=== PATIENT | male | born 1955 | race Caucasian/White ===

== ENCOUNTER 2019-10-12 10:28 | Emergency (ER) | payer OTHER, MEDICARE ==
[~2019-10-12] VITALS: Ht 182.9 cm; Wt 104.3 kg
[~2019-10-12 10:28] MED LIST: ASPI325 PO; ASPI81CH PO; ATEN25 PO; BUPR1 PO; BUPRENORPHINE HC8 MG SL; Crutch1 EACH MISC; FENT50TP TOP; FEXO180 PO; FLEC50 PO; HYDACE10B PO; HYDACE5 PO; IBUPROFEN PRN; Ibuprofen Ib200 MG PO; LANS30EC PO; LORA1 PO; NAPR550 PO; OMEP20ER PO; OXYACE5T PO; OXYC10ER PO; RXNAPNA550 PO; Tambocor100 MG PO; XARELTO15 MG PO
[2019-10-12] MEDS ORDERED: CYCL10 PO (12:29)
[2019-10-12] MEDS ORDERED: Percocet 5-3251 EACH PO (12:30)
[2019-10-12] MEDS ORDERED: Depo-Testos200 MG/ML IM (12:38)
[2019-10-12] MEDS ORDERED: TOPROL XL50 MG PO (12:38)
[2019-10-12] MEDS ORDERED: BUPRENORPHINE HC8 MG SL (12:38)
== END 2019-10-12 12:57 | disposition home or self-care (01) ==
LOC: ER 10:28
DX: M62.830 Muscle spasm of back (principal); I48.91 Unspecified atrial fibrillation; F17.200 Nicotine dependence, unspecified, uncomplicated; Z79.899 Other long term (current) drug therapy; Z79.82 Long term (current) use of aspirin; Z79.01 Long term (current) use of anticoagulants
CPT/HCPCS: 72100; 96372; 99283-25; J2270

== ENCOUNTER 2022-03-14 03:37 | Emergency (ER) | payer OTHER, MEDICARE ==
[~2022-03-14] VITALS: Ht 182.9 cm; Wt 104.3 kg
[~2022-03-14 03:37] MED LIST changes: +CYCL10 PO; +Depo-Testos200 MG/ML IM; +Percocet 5-3251 EACH PO; +TOPROL XL50 MG PO
[2022-03-14 04:06] LABS: BASOPHILS ABSOLUTE AUTO 0.07 K/mm3 (0.00-0.23); BASOPHILS PERCENT AUTO 1 % (0-2); EOSINOPHILS ABSOLUTE AUTO 0.34 K/mm3 (0.00-0.68); EOSINOPHILS PERCENT AUTO 3 % (0-6); Hematocrit 48.7 % (37.0-53.0); Hemoglobin 15.8 g/dL (13.5-17.5); IMMATURE GRAN ABSOLUTE AUTO 0.04 K/mm3 (0.00-0.10); IMMATURE GRAN PERCENT AUTO 0 % (0-1); LYMPHOCYTES ABSOLUTE AUTO 3.62 K/mm3 (0.84-5.20); LYMPHOCYTES PERCENT AUTO 30 % (21-46); MONOCYTES ABSOLUTE AUTO 0.77 K/mm3 (0.16-1.47); MONOCYTES PERCENT AUTO 6 % (4-13); Mean Corpuscular HGB 28.4 pg (26.0-34.0); Mean Corpuscular HGB Conc 32.4 g/dL (31.5-36.5); Mean Corpuscular Volume 88 fL (80-100); Mean Platelet Volume 10.2 fL (9.1-12.4); NEUTROPHILS ABSOLUTE AUTO 7.11 K/mm3 (1.96-9.15); NEUTROPHILS PERCENT AUTO 60 % (41-73); Platelet Count 214 K/mm3 (150-400); RDW Coefficient Variation 14.3 % (11.7-14.2); RDW Standard Deviation 46.4 fL (35.1-46.3); Red Blood Cell Count 5.56 M/mm3 (4.30-5.90); White Blood Cell Count 11.95 K/mm3 (4.00-11.30)
[2022-03-14 04:31] LABS: Alanine Aminotransfer (ALT/SGP 38 U/L (12-78); Albumin, Blood 3.6 g/dL (3.4-5.0); Alk Phos 109 U/L (50-136); Anion Gap 5 mmol/L (6-16); Aspartate Aminotrans (AST/SGOT 23 U/L (12-37); Bilirubin, Total 0.5 mg/dL (0.1-1.0); Blood Urea Nitrogen 16 mg/dL (8-24); Bun/Creatinine Ratio 18.9 (12.0-20.0); CO2, Blood 28 mmol/L (21-32); Chloride, Blood 107 mmol/L (98-108); Creatinine, Blood 0.85 mg/dL (0.60-1.20); Globulin, Blood 3.7 g/dL (2.2-4.0); Glomerular Filtration Rate >60 (60-); Glucose, Blood 102 mg/dL (70-99); Potassium, Blood 4.1 mmol/L (3.5-5.5); Sodium, Blood 140 mmol/L (136-145); Total Protein, Blood 7.3 g/dL (6.4-8.2)
[2022-03-14 05:04] LABS: Influenza A, PCR NEGATIVE (NEGATIVE); Influenza B, PCR NEGATIVE (NEGATIVE); Resp Syncytial Virus, PCR NEGATIVE (NEGATIVE); SARS-Cov-2 (COVID-19) PCR, MMC NEGATIVE (NEGATIVE)
[2022-03-14] MEDS ORDERED: LEVO750 PO (06:34)
== END 2022-03-14 07:20 | disposition home or self-care (01) ==
LOC: ER 03:37
PROVIDERS: Student in an Organized Health Care Education/Training Program
DX: J18.9 Pneumonia, unspecified organism (principal); Z20.822 Contact with and (suspected) exposure to COVID-19; I10 Essential (primary) hypertension; K21.9 Gastro-esophageal reflux disease without esophagitis; Z79.899 Other long term (current) drug therapy
CPT/HCPCS: 0241U; 36415; 71045; 80053; 83690; 84484; 85025; 93005; 93010; 96365; 96366; 96375; 99284-25; J1956; J2765

== ENCOUNTER 2023-08-31 05:29 | Observation (INO) | payer OTHER, MEDICARE ==
[~2023-08-31] VITALS: Ht 182.9 cm; Wt 101.0 kg
[~2023-08-31 05:29] MED LIST changes: +LEVO750 PO
[2023-08-31] MEDS ORDERED: ATOR40TA PO (05:51)
[2023-08-31] MEDS ORDERED: METO50ER PO (05:52)
[2023-08-31] MEDS ORDERED: ELIQUIS5 M3 PO (05:52)
[2023-08-31 05:56] LABS: BASOPHILS ABSOLUTE AUTO 0.05 K/mm3 (0.00-0.23); BASOPHILS PERCENT AUTO 1 % (0-2); EOSINOPHILS ABSOLUTE AUTO 0.21 K/mm3 (0.00-0.68); EOSINOPHILS PERCENT AUTO 2 % (0-6); Hematocrit 45.2 % (37.0-53.0); IMMATURE GRAN ABSOLUTE AUTO 0.02 K/mm3 (0.00-0.10); IMMATURE GRAN PERCENT AUTO 0 % (0-1); LYMPHOCYTES ABSOLUTE AUTO 3.12 K/mm3 (0.84-5.20); LYMPHOCYTES PERCENT AUTO 36 % (21-46); MONOCYTES ABSOLUTE AUTO 0.91 K/mm3 (0.16-1.47); MONOCYTES PERCENT AUTO 11 % (4-13); Mean Corpuscular HGB 30.2 pg (26.0-34.0); Mean Corpuscular HGB Conc 33.2 g/dL (31.5-36.5); Mean Corpuscular Volume 91 fL (80-100); Mean Platelet Volume 10.6 fL (9.1-12.4); NEUTROPHILS ABSOLUTE AUTO 4.36 K/mm3 (1.96-9.15); NEUTROPHILS PERCENT AUTO 50 % (41-73); Platelet Count 177 K/mm3 (150-400); RDW Coefficient Variation 14.3 % (11.7-14.2); RDW Standard Deviation 47.8 fL (35.1-46.3); Red Blood Cell Count 4.97 M/mm3 (4.30-5.90); White Blood Cell Count 8.67 K/mm3 (4.00-11.30)
[2023-08-31 06:15] LABS: Albumin, Blood 3.5 g/dL (3.4-5.0); Bilirubin, Total 0.4 mg/dL (0.1-1.0); Bun/Creatinine Ratio 12.5 (12.0-20.0); Calcium, Blood 8.9 mg/dL (8.5-10.1); Creatinine, Blood 0.8 mg/dL (0.60-1.20); Globulin, Blood 3.5 g/dL (2.2-4.0); Potassium, Blood 4.1 mmol/L (3.5-5.5)
[2023-08-31 08:14] LABS: CHOL/HDL RATIO 4.2; Cholesterol 92 mg/dL (50-200); HDL Cholesterol 22 mg/dL (>39); LDL/HDL RATIO 1.9; Low Density Lipoprotein Chol 41 mg/dL (0-110); Triglycerides 146 mg/dL (30-160); Very Low Density Lipoprot Chol 29 mg/dL (6-32)
[2023-08-31 11:52] VITALS: BP 121/70
--- NOTE | 2023-08-31 16:42 | NUR ---
SHIFT SUMMARY PT ADMITTED TO 338 VIA W/C THIS AFTERNOON FROM ER FOR C/O CP. PER ER REPORT PT ALREADY HAD AN OUTPT ANGIO SCHEDULED, BUT HAS BEEN HAVING PAIN/PRESSURE FOR 3 DAYS WITH INCREASE THIS AM AT 0300. PT IS A&O, PLEASANT AND CO-OP. INDEPENDENT IN AND TO [facility]. NO C/O PAIN TO PRESENT SINCE ADMISSION TO UNIT. PT TO HAVE FIRST PART OF STRESS TEST IN AM. NUC MED CALLED TO REPORT PT TO BE INJECTED AT [phone]. PT INFORMED TO BE NPO AT [place] AND NO ESPERANZA, CAFFEINE, ECT. PT VERBALIZED UNDERSTANDING. FAMILY IN AT BS. DR MORFIN IN TO SEE PT AFTER ADMISSION. ADDITIONAL FAMILY TO THIS AFTERNOON. DENIED FURTHER NEEDS. CALL LT IN REACH.
[2023-08-31 19:16] VITALS: BP 129/66
[2023-08-31 21:43] VITALS: BP 165/76
[2023-09-01 04:23] VITALS: BP 149/88
[2023-09-01 05:16] LABS: Hematocrit 47.9 % (37.0-53.0); Hemoglobin 15.8 g/dL (13.5-17.5); Mean Corpuscular HGB 29.6 pg (26.0-34.0); Mean Corpuscular Volume 90 fL (80-100); Mean Platelet Volume 10.7 fL (9.1-12.4); Platelet Count 179 K/mm3 (150-400); RDW Coefficient Variation 13.9 % (11.7-14.2); RDW Standard Deviation 45.6 fL (35.1-46.3); Red Blood Cell Count 5.34 M/mm3 (4.30-5.90); White Blood Cell Count 10.75 K/mm3 (4.00-11.30)
[2023-09-01 06:16] LABS: Albumin, Blood 3.7 g/dL (3.4-5.0); Bilirubin, Total 0.4 mg/dL (0.1-1.0); Bun/Creatinine Ratio 15.4 (12.0-20.0); Calcium, Blood 9.5 mg/dL (8.5-10.1); Creatinine, Blood 0.71 mg/dL (0.60-1.20); Globulin, Blood 3.7 g/dL (2.2-4.0); Potassium, Blood 4.3 mmol/L (3.5-5.5); Total Protein, Blood 7.4 g/dL (6.4-8.2)
--- NOTE | 2023-09-01 06:23 | NUR ---
Shift Summary Early in the shift pt c/o of cold sweats, nausea, anxiety, mild-moderate chest and back pain. Gave 1 SL tab of nitroglycerin which relieved the pain. Hospitalist ordered Hydroxyzine for anxiety which helped the pt enough to get a few hours sleep. No chest pain for the rest of the night. Pt anxious about stress test today. NPO except water since 0000. AOx4, independent in the room, in room overnight.
[2023-09-01 07:38] VITALS: BP 148/61
[2023-09-01 14:16] VITALS: BP 154/78
[2023-09-01 15:20] VITALS: BP 121/56
[2023-09-01] MEDS ORDERED: Isosorbide Mono30 MG PO (15:22)
--- NOTE | 2023-09-01 16:32 | NUR ---
DISCHARGE SUMMARY PATIENT MEDS FAXED TO [facility] WHICH WAS CLOSED, [facility]. IV REMOVED PRIOR TO DISCHARGE, NO COMPLICATIONS. DISCHARGE PACKET GIVEN AND REVIEWED, PATIENT AND HAD NO QUESTIONS AT THIS TIME. LEFT IN WHEELCHAIR WITH TO DRIVE HOME.
== END 2023-09-01 16:00 | disposition home or self-care (01) ==
LOC: ER 05:29 → MEDS 05:30 → ENPENDDIS 09-01 15:12 → MEDS 09-01 16:00
PROVIDERS: Student in an Organized Health Care Education/Training Program; ADMIT Internal Medicine
DX: R07.89 Other chest pain (principal); I48.20 Chronic atrial fibrillation, unspecified; I10 Essential (primary) hypertension; E78.5 Hyperlipidemia, unspecified; K21.9 Gastro-esophageal reflux disease without esophagitis; G89.29 Other chronic pain; Z79.01 Long term (current) use of anticoagulants; G47.33 Obstructive sleep apnea (adult) (pediatric); F17.210 Nicotine dependence, cigarettes, uncomplicated; Z79.899 Other long term (current) drug therapy
CPT/HCPCS: 36415; 71045; 78452; 80053; 80061; 84484; 85025; 85027; 93005; 93010; 93017; 99285-25; A9270; A9500; G0378; J0280; J2785

== ENCOUNTER 2023-09-05 10:23 | Emergency (ER) | payer OTHER, MEDICARE ==
[~2023-09-05] VITALS: Ht 182.9 cm; Wt 104.3 kg
[~2023-09-05 10:23] MED LIST changes: +ATOR40TA PO; +ELIQUIS5 M3 PO; +Isosorbide Mono30 MG PO; +METO50ER PO
[2023-09-05 11:02] LABS: BASOPHILS ABSOLUTE AUTO 0.05 K/mm3 (0.00-0.23); BASOPHILS PERCENT AUTO 0 % (0-2); EOSINOPHILS ABSOLUTE AUTO 0.14 K/mm3 (0.00-0.68); EOSINOPHILS PERCENT AUTO 1 % (0-6); Hematocrit 46.2 % (37.0-53.0); IMMATURE GRAN ABSOLUTE AUTO 0.02 K/mm3 (0.00-0.10); IMMATURE GRAN PERCENT AUTO 0 % (0-1); LYMPHOCYTES ABSOLUTE AUTO 3.55 K/mm3 (0.84-5.20); LYMPHOCYTES PERCENT AUTO 31 % (21-46); MONOCYTES ABSOLUTE AUTO 1.09 K/mm3 (0.16-1.47); MONOCYTES PERCENT AUTO 9 % (4-13); Mean Corpuscular HGB 29.5 pg (26.0-34.0); Mean Corpuscular HGB Conc 32.5 g/dL (31.5-36.5); Mean Corpuscular Volume 91 fL (80-100); NEUTROPHILS ABSOLUTE AUTO 6.69 K/mm3 (1.96-9.15); NEUTROPHILS PERCENT AUTO 58 % (41-73); Platelet Count 185 K/mm3 (150-400); RDW Coefficient Variation 14.2 % (11.7-14.2); RDW Standard Deviation 47.8 fL (35.1-46.3); Red Blood Cell Count 5.08 M/mm3 (4.30-5.90); White Blood Cell Count 11.54 K/mm3 (4.00-11.30)
[2023-09-05 11:35] LABS: Bun/Creatinine Ratio 14.6 (12.0-20.0); Calcium, Blood 8.8 mg/dL (8.5-10.1); Creatinine, Blood 0.75 mg/dL (0.60-1.20); Potassium, Blood 4.2 mmol/L (3.5-5.5)
[2023-09-05 13:00] VITALS: BP 114/66
[2023-09-05] MEDS ORDERED: OXAYDO5 M1 PO (13:11)
[2023-09-05] MEDS ORDERED: GABA300 PO (13:11)
== END 2023-09-05 13:40 | disposition home or self-care (01) ==
LOC: ER 10:23
PROVIDERS: Student in an Organized Health Care Education/Training Program
DX: I48.91 Unspecified atrial fibrillation (principal); M54.42 Lumbago with sciatica, left side; R07.9 Chest pain, unspecified; I10 Essential (primary) hypertension; E78.5 Hyperlipidemia, unspecified; F17.210 Nicotine dependence, cigarettes, uncomplicated; Z79.01 Long term (current) use of anticoagulants; Z79.82 Long term (current) use of aspirin; Z79.899 Other long term (current) drug therapy
CPT/HCPCS: 80048; 83735; 84484; 85025; 92960; 93005; 93010; 96361-59; 96374-59; 99152; 99285-25; A9270; J1170; J7030

== ENCOUNTER 2023-10-04 06:07 | Day surgery (SDC) | payer OTHER, MEDICARE ==
[~2023-10-04] VITALS: Ht 182.9 cm; Wt 104.0 kg
[~2023-10-04 06:07] MED LIST changes: +GABA300 PO; +OXAYDO5 M1 PO; -TOPROL XL50 MG PO
[2023-10-04 06:46] VITALS: BP 118/72
[2023-10-04 07:47] VITALS: BP 149/79
[2023-10-04 08:00] VITALS: BP 134/74
[2023-10-04 08:15] VITALS: BP 119/69
[2023-10-04 08:30] VITALS: BP 120/93
[2023-10-04 09:00] VITALS: BP 144/103
--- NOTE | 2023-10-04 09:00 | NUR ---
12CC AIR REMOVED FROM R WRIST TR BAND. -BLEEDING OR SWELLING.
== END 2023-10-04 12:30 | disposition home or self-care (01) ==
LOC: MHTC 06:07
DX: I25.10 Atherosclerotic heart disease of native coronary artery without angina pectoris (principal); R07.89 Other chest pain; I48.0 Paroxysmal atrial fibrillation; I10 Essential (primary) hypertension; E78.5 Hyperlipidemia, unspecified; J44.9 Chronic obstructive pulmonary disease, unspecified; G47.33 Obstructive sleep apnea (adult) (pediatric); Z79.899 Other long term (current) drug therapy
CPT/HCPCS: 76937; 93454; 99152; A9270; C1769; C1887; C1894; J1644; J2250; J3010; J7030; J7050; Q9967

== ENCOUNTER 2024-05-21 21:40 | Observation (INO) | payer OTHER, MEDICARE ==
[~2024-05-21] VITALS: Ht 182.9 cm; Wt 97.5 kg
[~2024-05-21 21:40] MED LIST changes: +TAMSULOSIN HCL0.4 M1 PO; +metoprolol succinate
[2024-05-21] MEDS ORDERED: ELIQUIS5 M2 PO (22:11)
[2024-05-21] MEDS ORDERED: METO50ER PO (22:12)
[2024-05-21 22:36] LABS: BASOPHILS ABSOLUTE AUTO 0.04 K/mm3 (0.00-0.23); BASOPHILS PERCENT AUTO 0 % (0-2); EOSINOPHILS ABSOLUTE AUTO 0.11 K/mm3 (0.00-0.68); EOSINOPHILS PERCENT AUTO 1 % (0-6); Hematocrit 40.7 % (37.0-53.0); Hemoglobin 13.6 g/dL (13.5-17.5); IMMATURE GRAN ABSOLUTE AUTO 0.03 K/mm3 (0.00-0.10); IMMATURE GRAN PERCENT AUTO 0 % (0-1); LYMPHOCYTES ABSOLUTE AUTO 3.69 K/mm3 (0.84-5.20); LYMPHOCYTES PERCENT AUTO 35 % (21-46); MONOCYTES ABSOLUTE AUTO 0.67 K/mm3 (0.16-1.47); MONOCYTES PERCENT AUTO 6 % (4-13); Mean Corpuscular HGB 31.3 pg (26.0-34.0); Mean Corpuscular HGB Conc 33.4 g/dL (31.5-36.5); Mean Corpuscular Volume 94 fL (80-100); Mean Platelet Volume 10.8 fL (9.1-12.4); NEUTROPHILS ABSOLUTE AUTO 6.05 K/mm3 (1.96-9.15); NEUTROPHILS PERCENT AUTO 57 % (41-73); Platelet Count 183 K/mm3 (150-400); RDW Coefficient Variation 12.2 % (11.7-14.2); RDW Standard Deviation 42.5 fL (35.1-46.3); Red Blood Cell Count 4.34 M/mm3 (4.30-5.90); White Blood Cell Count 10.59 K/mm3 (4.00-11.30)
[2024-05-21 22:56] LABS: Albumin, Blood 3.6 g/dL (3.4-5.0); Albumin/Globulin Ratio 0.9 (0.8-1.8); Bilirubin, Total 0.3 mg/dL (0.1-1.0); Bun/Creatinine Ratio 19.1 (12.0-20.0); Creatinine, Blood 0.73 mg/dL (0.60-1.20); Globulin, Blood 3.8 g/dL (2.2-4.0); Potassium, Blood 3.7 mmol/L (3.5-5.5); Total Protein, Blood 7.4 g/dL (6.4-8.2)
[2024-05-21] MEDS ORDERED: Diltiazem HCl 5 MG / ML 5ML Vial IV ONE (23:45)
[2024-05-22] MEDS ORDERED: Ondansetron HCl 2 MG / ML 2ML Vial IV PRN (00:30)
[2024-05-22] MEDS ORDERED: Potassium Chloride 40 MEQ in NS 250 ML IV STA (00:35)
[2024-05-22 01:07] LABS: Prothrombin Time Results 10.7 Sec (9.7-11.5)
[2024-05-22] MEDS ORDERED: LORazepam 0.5 MG Tab PO ONE (01:10)
[2024-05-22 01:36] VITALS: BP 114/64
[2024-05-22] MEDS ORDERED: TAMS.4ER PO (01:41)
[2024-05-22] MEDS ORDERED: Acetaminophen 325 MG TABLET PO PRN (03:15)
--- NOTE | 2024-05-22 03:27 | NUR ---
ADMISSION: LATE ENTRY FOR @ 0130 PATIENT WAS RECIEVED FROM ER VIA STRETCHER. VSS, TELEMETRY WAS INITIATED AND PATIENT WAS ORIENTED TO THE ROOM AND CALL MORGAN. NO SMOKING POLICY WAS REVIEWED AND PATIENT VERBALIZES UNDERSTANDING. PATIENT IS TEARFUL, HIS HAS JUST THIS WEEK AFTER A LONG ILLNESS.
[2024-05-22 03:35] VITALS: BP 114/75
--- NOTE | 2024-05-22 03:50 | NUR ---
MEDICATIONS: IV POTASSIUM WAS CAUSING INSERTION SITE DISCOMFORT. INFUSION WAS SLOWED AND DISCOMFORT RESOLVED.
[2024-05-22] MEDS ORDERED: Mag Sulfate 1 GM/D5% 100ML 100 ML IV STA (04:09)
[2024-05-22] MEDS ORDERED: NS 1,000 ML IV SCH (04:10)
[2024-05-22 07:31] VITALS: BP 106/89
--- NOTE | 2024-05-22 07:33 | NUR ---
PATIENT HAS SLEPT THROUGH THE NIGHT AFTER TYLENOL WAS GIVEN FOR CHRONIC BACK PAIN. DAUGHTER IS AT BEDSIDE. PATIENT USED CPAP FOR SLEEP WITH CONTINUOS PULSE OX IN PLACE. NO COMPLAINTS OF CHEST PAIN OR PRESSURE. HEART RATE WAS 97 DURING SLEEP PER MRI TECHNICIAN.
[2024-05-22] MEDS ORDERED: buprenorphine HCL 2 MG TAB.SUBL SL SCH ×2 (09:00)
[2024-05-22] MEDS ORDERED: Metoprolol Succinate 50 MG TABCR PO SCH ×2 (09:00→21:00)
[2024-05-22] MEDS ORDERED: Atorvastatin 40 MG Tab PO SCH (09:00)
[2024-05-22] MEDS ORDERED: Enoxaparin 40 MG/0.4 ML SYR SC SCH (09:00)
[2024-05-22] MEDS ORDERED: Nicotine 21 MG PATCH TOP SCH (09:00)
[2024-05-22] MEDS ORDERED: Apixaban 5 MG Tab PO SCH (09:00)
--- NOTE | 2024-05-22 09:31 | NUR ---
929- THIS RN NOTIFIED DR. STEWART THAT PT TOOK HIS OWN BUPRENORPHRINE FROM HIS POCKET THIS MORNING. PT STATED HE TOOK, "1/3 OF A 8 MG PILL." PT EDUCATED ON MED SAFETY AND THIS RN TOOK ALL PT'S MEDS AND PUT THEM IN HIS DRAWER-INCLUDING HIS BUPRENORPHRINE. JESSIE SAUCEDO NOTIFIED.
--- NOTE | 2024-05-22 09:58 | NUR ---
VERBAL ORDER PATIENT STATES AT HOME HE TAKES BUPRENORPHINE 8MG THREE TIMES DAILY, BUT HE ONLY TAKES 4MG AT A TIME. ATTENDING NOTIFIED AND NEW ORDERS RECIEVED TO PLACE PATIENT ON 4MG BUPRENORPHINE TID.
[2024-05-22] MEDS ORDERED: Metoprolol Succinate 25 MG TABCR PO ONE (10:00)
[2024-05-22 10:49] LABS: BASOPHILS ABSOLUTE AUTO 0.03 K/mm3 (0.00-0.23); BASOPHILS PERCENT AUTO 0 % (0-2); EOSINOPHILS ABSOLUTE AUTO 0.09 K/mm3 (0.00-0.68); EOSINOPHILS PERCENT AUTO 1 % (0-6); Hematocrit 40.4 % (37.0-53.0); IMMATURE GRAN ABSOLUTE AUTO 0.01 K/mm3 (0.00-0.10); IMMATURE GRAN PERCENT AUTO 0 % (0-1); LYMPHOCYTES ABSOLUTE AUTO 2.68 K/mm3 (0.84-5.20); LYMPHOCYTES PERCENT AUTO 33 % (21-46); MONOCYTES ABSOLUTE AUTO 0.68 K/mm3 (0.16-1.47); MONOCYTES PERCENT AUTO 8 % (4-13); Mean Corpuscular HGB Conc 32.2 g/dL (31.5-36.5); Mean Corpuscular Volume 96 fL (80-100); Mean Platelet Volume 10.5 fL (9.1-12.4); NEUTROPHILS ABSOLUTE AUTO 4.58 K/mm3 (1.96-9.15); NEUTROPHILS PERCENT AUTO 57 % (41-73); Platelet Count 159 K/mm3 (150-400); RDW Coefficient Variation 12.5 % (11.7-14.2); RDW Standard Deviation 44.2 fL (35.1-46.3); White Blood Cell Count 8.07 K/mm3 (4.00-11.30)
[2024-05-22 11:02] LABS: Albumin, Blood 3.2 g/dL (3.4-5.0); Albumin/Globulin Ratio 0.9 (0.8-1.8); Bilirubin, Total 0.3 mg/dL (0.1-1.0); Bun/Creatinine Ratio 21.2 (12.0-20.0); Calcium, Blood 8.6 mg/dL (8.5-10.1); Creatinine, Blood 0.61 mg/dL (0.60-1.20); Globulin, Blood 3.4 g/dL (2.2-4.0); Potassium, Blood 4.2 mmol/L (3.5-5.5); Total Protein, Blood 6.6 g/dL (6.4-8.2)
--- NOTE | 2024-05-22 11:55 | NUR ---
Upon receiving a referral for spiritual care, I visited with the patient. He tells me about his medical problems but then immediately shares about the recent of his . Her service will be this Sunday in [place]. 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 He expresses how challenging his bereavement has been, but that he has solid family, roman catholic and cummunity support. One of his children and their family live with him as well as his 's mother. This has also been very helpful for him. I encouraged self-care and provided therapeutic listening, grief support and prayer. Patient responded well and showed signs of greater peace. I will continue to remain available to patient and family.
--- NOTE | 2024-05-22 12:28 | NUR ---
DISCHARGE NOTE PATIENT A/OX4 AND INDEPENDENT IN ROOM. PATIENT'S DAUGHTER AT BEDSIDE. THIS AM ADMINISTERED ZOFRAN FOR NAUSEA WITHOUT EMESIS, EFFECTIVE. DENIES PAIN. NEW ORDER TO INCREASE METOPROLOL THIS MORNING FOR RATE CONTROL ADMINISTERED. NO OTHER CONCERNS AT THIS TIME. DISCHARGE EDUCATION PROVIDED TO PATIENT AND PATIENT'S DAUGHTER REGARDING MEDICATION DOSE CHANGES AND NEED FOR FOLLOW UP APPOINTMENTS WITH PRIMARY CARE AND CARDIOLOGY. PATIENT AND DAUGHTER RECEPTIVE. NO OTHER CONCERNS AT THIS TIME. PATIENT DISCHARGED VIA WHEELCAHIR AND ESCORTED TO HIS DAUGHTER'S VEHICLE BY STAFF WITH ALL BELONGINGS IN HAND.
--- NOTE | 2024-05-22 14:37 | NUR ---
REVIEWED ALL NOTES AND ASSESSMENTS AND AGREE WITH JESSIE CHOU.
[2024-05-22] MEDS ORDERED: Tamsulosin HCl 0.4 MG Cap PO SCH (21:00)
== END 2024-05-22 12:10 | disposition home or self-care (01) ==
LOC: ER 21:40 → MEDS 21:41 → ERHOLD 21:41 → MEDS 05-22 01:24
PROVIDERS: Emergency Medicine; ADMIT Internal Medicine
DX: I48.91 Unspecified atrial fibrillation (principal); I10 Essential (primary) hypertension; E78.5 Hyperlipidemia, unspecified; F41.8 Other specified anxiety disorders; K21.9 Gastro-esophageal reflux disease without esophagitis; Z88.8 Allergy status to other drugs, medicaments and biological substances; Z79.01 Long term (current) use of anticoagulants; Z79.899 Other long term (current) drug therapy
CPT/HCPCS: 36415; 71046; 80053; 83735; 83880; 84484; 85025; 85610; 93005; 93010; 94762; 96365; 96366; 96367; 96374; 96375; 99285-25; A9270; G0378; J2405; J3475; J3480; J7030; J7050

== ENCOUNTER 2025-09-24 02:27 | Emergency (ER) | payer OTHER ==
[~2025-09-24] VITALS: Ht 182.9 cm; Wt 111.1 kg
[~2025-09-24 02:27] MED LIST changes: +ELIQUIS5 M2 PO; +IRON FOLATE-F1 EACH PO; +TAMS.4ER PO; +VITAMIN D5000 UNIT PO
[2025-09-24 02:46] LABS: BASOPHILS ABSOLUTE AUTO 0.03 K/mm3 (0.00-0.23); BASOPHILS PERCENT AUTO 0 % (0-2); EOSINOPHILS ABSOLUTE AUTO 0.16 K/mm3 (0.00-0.68); EOSINOPHILS PERCENT AUTO 2 % (0-6); Hematocrit 37.7 % (37.0-53.0); Hemoglobin 12.1 g/dL (13.5-17.5); IMMATURE GRAN ABSOLUTE AUTO 0.03 K/mm3 (0.00-0.10); IMMATURE GRAN PERCENT AUTO 0 % (0-1); LYMPHOCYTES ABSOLUTE AUTO 2.48 K/mm3 (0.84-5.20); LYMPHOCYTES PERCENT AUTO 34 % (21-46); MONOCYTES ABSOLUTE AUTO 0.54 K/mm3 (0.16-1.47); MONOCYTES PERCENT AUTO 7 % (4-13); Mean Corpuscular HGB Conc 32.1 g/dL (31.5-36.5); Mean Corpuscular Volume 91 fL (80-100); NEUTROPHILS ABSOLUTE AUTO 4.15 K/mm3 (1.96-9.15); NEUTROPHILS PERCENT AUTO 56 % (41-73); NRBC ABSOLUTE 0.00 K/mm3 (0.00-0.02); NRBC Auto 0.0 /100 WBC (0.0-0.2); Platelet Count 207 K/mm3 (150-400); RDW Coefficient Variation 13.6 % (11.7-14.2); RDW Standard Deviation 45.9 fL (35.1-46.3)
[2025-09-24 04:21] VITALS: BP 127/63
== END 2025-09-24 04:24 | disposition home or self-care (01) ==
LOC: ER 02:27
PROVIDERS: Student in an Organized Health Care Education/Training Program
DX: I83.92 Asymptomatic varicose veins of left lower extremity (principal); I10 Essential (primary) hypertension; K21.9 Gastro-esophageal reflux disease without esophagitis; F17.290 Nicotine dependence, other tobacco product, uncomplicated; Z79.01 Long term (current) use of anticoagulants; Z79.899 Other long term (current) drug therapy; Z88.8 Allergy status to other drugs, medicaments and biological substances
CPT/HCPCS: 85025; 99283